=== PATIENT | female | born 1985 | race Caucasian/White ===

== ENCOUNTER → 2016-10-16 | Day surgery (SDC) | payer OTHER ==
[~2016-10-16] VITALS: Ht 175.3 cm; Wt 70.3 kg
[~2016-10-16] MED LIST: BUPIVACAINE HCL 0.5% 10 ML VIAL As Ordered ONE; BUPIVACAINE HCL 0.5% 30 ML VIAL As Ordered ONE; BUPIVACAINE HCL 0.5% 30 ML VIAL XX ONE; BUPIVACAINE LIPOSOME/PF 1.3% 20ML (266MG/20ML) VIAL (EXPAREL) As Ordered ONE; BUPIVACAINE LIPOSOME/PF 1.3% 20ML (266MG/20ML) VIAL (EXPAREL) XX ONE; CHLOROPROCAINE PRES. FREE 3% INJ 20 ML VIAL (J2400) As Ordered ONE; COLA100C PO; KETOROLAC 30 MG/ML VIAL (J1885) As Ordered ONE; KETOROLAC 30 MG/ML VIAL (J1885) IV ONE; KETOROLAC 30 MG/ML VIAL (J1885) IV PRN; LIDOCAINE 2% INJ 100 MG/5 ML SDV (FOR ANES.) As Ordered ONE; LR 1,000 ML IV SCH; LR 500 ML IV SCH; MIDAZOLAM INJ 2 MG/2 ML VIAL (J2250) As Ordered ONE; MIDAZOLAM INJ 5 MG/ML VIAL (J2250) As Ordered ONE; NORC5TAB PO; NORCO, ANEXSIA 5/325MG TABLET (HYDROcodone/ACETAMINOPHEN) PO PRN; ONDANSETRON 4MG/2ML VIAL (J2405) As Ordered ONE; ONDANSETRON 4MG/2ML VIAL (J2405) IV PRN; PERCOCET 5MG/325MG TAB PO PRN; PROPOFOL 200 MG/20 ML VIAL As Ordered ONE; fentaNYL 100 MCG/2 ML INJECTION (J3010) As Ordered ONE; fentaNYL 100 MCG/2 ML INJECTION (J3010) IV PRN
[2016-10-16 10:14] LABS: CONTROL LINE UCG INT CTR LINE PRESENT
[2016-10-16 17:15] VITALS: BP 135/76
--- NOTE | 2016-10-19 07:32 | RO ---
DATE OF PROCEDURE: 10/16/2015 PREOPERATIVE DIAGNOSIS: Chronic anal fissure. POSTOPERATIVE DIAGNOSIS: Chronic anal fissure. PROCEDURE PERFORMED: Lateral internal sphincterotomy. SURGEON: Dr. Antonio Lozano. [employer]: ANESTHESIA: Spinal. INDICATIONS FOR PROCEDURE: The patient is a 31-year-old woman who reported a history of rectal bleeding and rectal pain. Examination confirmed a chronic posterior midline fissure. She is now for a lateral internal sphincterotomy. DESCRIPTION OF PROCEDURE: The patient had a spinal anesthetic placed. She was moved into a prone jackknife position. The buttocks were spread with tape and the perineum was prepped. The anus and distal rectum were inspected using a Champagne anal speculum. The patient appeared to have some smaller hemorrhoidal folds on the right-hand side. She had a definite chronic posterior midline fissure. There was an opening approximately 6 mm in diameter in the anoderm through which it was possible to see fibers of the internal sphincter muscle. A site was selected for the left lateral internal sphincterotomy and the distal margin of the internal sphincter muscle was identified by palpation. An approximately 2 cm longitudinal incision was made through the anoderm. The distal edge of the muscle was elevated with a clamp and an approximately 1 to1.5 cm portion of the distal edge of the internal sphincter muscle was divided using the cautery. The muscle fibers retracted on both sides. The anoderm was then closed with several interrupted simple sutures of #3-0 chromic. Some 0.5% Marcaine was infiltrated about the wound. The anus was covered with Adaptic and a small fluffed gauze dressing was applied over this. The patient tolerated the procedure well without apparent complication. She was returned to a supine position on a stretcher and returned to the recovery room. ML
== END | disposition home or self-care (01) ==
LOC: M SDC 09:16
PROVIDERS: ATTEND Surgery
DX: K60.1 Chronic anal fissure (principal); F41.9 Anxiety disorder, unspecified
CPT/HCPCS: 46200; 84703; 96374; J1885; J2250; J2400; J2405; J3010